=== PATIENT | female | born 1960 | race Caucasian/White ===

== ENCOUNTER 2017-01-30 09:14 | Day surgery (SDC) | payer OTHER ==
[~2017-01-30] VITALS: Ht 160 cm; Wt 68.8 kg
[2017-01-30] MEDS ORDERED: LOSARTAN POTASSIUM (10:05)
[2017-01-30 10:06] VITALS: Ht 160 cm; Wt 68.8 kg
[2017-01-30 10:52] VITALS: BP 121/70; PULSE 57; RESP 12
[2017-01-30] MEDS ORDERED: PROPOFOL 40 ML ONE (10:59)
--- NOTE | 2017-01-30 11:33 | OPPN ---
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
--- NOTE | 2017-01-30 11:33 | OPPN ---
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
--- NOTE | 2017-01-30 11:33 | OPPN ---
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
--- NOTE | 2017-01-30 11:45 | GILP ---
DATE OF PROCEDURE: PROCEDURE PERFORMED: Esophagogastroduodenoscopy and colonoscopy with biopsies. INDICATION: A 56-year-old female undergoing this procedure for dysphagia and colon cancer screening . The risks of the procedure, related and unrelated complications, sedative risks, alternatives dis cussed and informed consent was obtained. DESCRIPTION OF PROCEDURE: The patient was brought to the GI lab, sedated by the anesthesiologist. After obtaining sedation, scope was passed with much ease into esophagus which was grossly within no rmal limits. No evidence of stricture or tumor or ulcer identified. Z-line was at 35 cm. The juan ent had a 2 cm hiatal hernia. Stomach mucosa revealed gastritis. Three biopsies obtained to rule o ut H. pylori infection. Duodenum, first and second part was within normal limits. Retroversion als o was normal. Scope was then straightened out and removed with good patient tolerance. IMPRESSION 1. 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 2. Gastritis. 3. Normal esophagus. 4. Z line at 35 cm. PLAN: To review histopathology. COLONOSCOPY: The patient was turned around, scope was passed with much ease into rectum and advance d slowly through sigmoid, descending, transverse colon all the way into the cecum. Appendiceal orif ice and IC valve identified. While coming out, mucosa thoroughly inspected and into terminal ileum was normal. Retroversion also appeared normal, digital examination was normal. IMPRESSION: 1. Normal findings all the way into cecum. 2. Normal terminal ileum. 3. Preparation was good and clarity was good. 4. Normal retroversion and digital palpation. PLAN: Stay on high fiber diet. Next colonoscopy after 10 years. Dictated By: BEA VERNON/ANGELY Conf#: [id number] DID#: [id number]
[2017-01-30 11:56] VITALS: BP 126/65; RESP 14
== END 2017-01-30 14:08 | disposition home or self-care (01) ==
LOC: GIL 09:14
PROVIDERS: ATTEND Internal Medicine Gastroenterology
DX: Z12.11 Encounter for screening for malignant neoplasm of colon (principal); K29.70 Gastritis, unspecified, without bleeding; K31.819 Angiodysplasia of stomach and duodenum without bleeding; K44.9 Diaphragmatic hernia without obstruction or gangrene; E78.5 Hyperlipidemia, unspecified; I10 Essential (primary) hypertension; E66.9 Obesity, unspecified; Z68.26 Body mass index [BMI] 26.0-26.9, adult
CPT/HCPCS: 43239; 45378; 88305; 88312; Z7610